=== PATIENT | male | born 1955 | race Caucasian/White ===

== ENCOUNTER 2018-06-02 14:05 | Inpatient (IN) | payer MEDICARE, MEDICAID ==
--- NOTE | 2018-06-02 14:20 | ED Physician Chart ---
ED Chief Complaint/HPI - Patient Information Date Seen:: 06/02/18 Time Seen:: 14:10 Chief Complaint:: Agitation History of Present Illness:: onset x 3 days of agitation and aggressive/hostile behavior; no report of trauma , H/As, SIs, S/T, neck pain, C/P, SOB, Abd. Pain, A/N/V/D/C, fever, chills, or urinary s/s Historian:: Patient, EMS Review:: Nurse's Note Reviewed, Old Chart Reviewed, EMS run form Reviewed ED Review of Systems - Review of Systems General/Constitutional: No fever, No chills, No weight loss, No weakness, No diaphoresis, No edema, No loss of appetite Skin: No skin lesions, No rash, No bruising Head: No headache, No light-headedness Eyes: No loss of vision, No pain, No diplopia ENT: No earache, No nasal drainage, No sore throat, No tinnitus Neck: No neck pain, No swelling, No thyromegaly, No stiffness, No mass noted Cardio Vascular: No chest pain, No palpitations, No PND, No orthopnea, No edema Pulmonary: No SOB, No cough, No sputum, No wheezing GI: No nausea, No vomiting, No diarrhea, No pain, No melena, No hematochezia, No constipation, No hematemesis G/U: No dysuria, No frequency, No hematuria, No nacturia Musculoskeletal: No bone or joint pain, No back pain, No muscle pain Endocrine: No polyuria, No polydipsia Psychiatric: Prior psych history, Depression, Anxiety, No suicidal ideation, No homicidal ideation, No auditory hallucination, No visual hallucination Hematopoietic: No bruising, No lymphadenopathy Allergic/Immuno: No urticaria, No angioedema Neurological: No syncope, No focal symptoms, No weakness, No paresthesia, No headache, No seizure, No dizziness, No confusion, No vertigo ED Past Medical History - Past Medical History Obtainable: Yes Past Medical History: HTN, Dyslipidemia Family History: HTN Social History: Non Smoker, No Alcohol, No Drug Use, Single, Care Facility Surgical History: None Psychiatricy History: Depression, Bipolar Medication: Reviewed Family Medical History - Family Member Mother History Unknown: Yes ED Physical Exam - Physical Examination General/Constitutional: Awake, Well-developed, well-nourished, Alert, No distress, GCS 15, Non-toxic appearing, Ambulatory Head: Atraumatic Eyes: Lids, conjuctiva normal, PERRL, EOMI Skin: Nl inspection, No rash, No skin lesions, No ecchymosis, Well hydrated, No lymphadenopathy ENMT: External ears, nose nl, TM canals nl, Nasal exam nl, Lips, teeth, gums nl , Oropharynx nl, Tonsils nl Neck: Nontender, Full ROM w/o pain, No JVD, No nuchal rigidity, No bruit, No mass, No stridor Respiratory: Nl effort/Exclusion, Clear to Auscultation, No Wheeze/Rhonchi/Rales Cardio Vascular: RRR, No murmur, gallop, rubs, NL S1 S2, Carotid/Femoral/Distal pulses equal bilaterally GI: No tenderness/rebounding/guarding, No organomegaly, No hernia, Normal BS's, Nondistended, No mass/bruits, No McBurney tenderness : No CVA tenderness Extremities: No tenderness or effusion, Full ROM, normal strength in all extremities, No edema, Normal digits & nails Neuro/Psych: Alert/oriented, DTR's symmetric, Normal sensory exam, Normal motor strength, Judgement/insight normal, Mood normal, Normal gait, No focal deficits Other Neuro/Psych comments:: + Psychomotor Agitation; no SIs; Mood/Affect: Labile Misc: Normal back, No paraspinal tenderness ED Labs/Radiology/EKG Results - Lab Results Comments:: Reviewed - EKG Interpretations EKG Time:: 14:29 Rate & Rhythm: 73; NSR Comments:: old ASMI; non-specific st-t changes ED Septic Shock - . Is Septic Shock (SBP<90, OR Lactate>4 mmol\L) present?: No ED Reassessment (Disposition) - Reassessment Reassessment Condition:: Improved - Diagnosis Diagnosis:: Agitation; Psychosis; Medical Clearance; Bipolar Disorder - Aftercare/Follow up Instructions Aftercare/Follow-Up Instructions:: Counseled pt regarding lab results/diagnosis & need follow up, Counseled pt & family regarding lab results/diagnosis & need follow up - Patient Disposition Discharge/Transfer:: Acute Care w/in this hosp Admitted to:: [facility] Condition at Disposition:: Stable, Improved
[2018-06-02 14:33] LABS: % BASOPHILS 0.6 % (0.0-2.0); % EOSINOPHILS 2.7 % (0.0-5.0); % LYMPHOCYTES 33.6 % (20.0-50.0); % MONOCYTES 9.2 % (2.0-10.0); % NEUTROPHILS 53.9 % (40.0-80.0); EOSINOPHILE ABSOLUTE 0.1 Th/cmm (0.1-0.4); HEMATOCRIT 42.9 % (41.0-60); HEMOGLOBIN 13.9 gm/dL (12-16); LYMPHOCYTE ABSOLUTE 1.8 Th/cmm (1.5-3.0); MEAN CELL VOLUME 84.5 fl (80-99); MEAN CORPUSCULAR HEMOGLOBIN 27.4 pg (26.0-30.0); MEAN CORPUSCULAR HGB CONC 32.4 pg (28.0-36.0); MEAN PLATELET VOLUME 8.9 fl; MONOCYTE ABSOLUTE 0.5 Th/cmm (0.3-1.0); NEUTROPHILE ABSOLUTE 2.9 Th/cmm (1.8-8.0); PLATELET COUNT 252 Th/cmm (150-400); RED BLOOD COUNT 5.07 Mil/cmm (4.30-5.70); RED CELL DISTRIBUTION WIDTH 16.1 % (11.5-20.0); WHITE BLOOD COUNT 5.3 Th/cmm (4.8-10.8)
[2018-06-02 14:51] LABS: ACETAMINOPHEN < 10.0 ug/mL (10.0-30.0); ALB/GLOB RATIO 1.4 (1.0-1.8); ALBUMIN 4.2 gm/dL (4.2-5.5); ALKALINE PHOSPHATASE 64 U/L (34-104); ANION GAP 9.1 (7.0-16.0); BILIRUBIN,TOTAL 0.3 mg/dL (0.3-1.0); BUN - UREA NITROGEN 21 mg/dL (7-25); CALCIUM SERUM 9.7 mg/dL (8.6-10.3); CARBON DIOXIDE 25.7 mEq/L (21.0-31.0); CHLORIDE 107 mEq/L (98-107); CHOLESTEROL 141 mg/dL (<200); CREATININE - SERUM 0.8 mg/dL (0.7-1.3); GFR AFRICAN-AMERICAN > 60.0 ml/min (>90); GFR NON AFRICAN-AMERICAN > 60.0 ml/min; GLUCOSE 150 mg/dL (70-105); HDL -HIGH DENSITY LIPOPROTEIN 31 mg/dL (23-92); POTASSIUM SERUM 3.8 mEq/L (3.5-5.1); SALICYLATES (ASPIRIN) < 25.0 mg/L (30.0-100.0); SGOT 9 U/L (13-39); SGPT/ALT 10 U/L (7-52); SODIUM SERUM 138 mEq/L (136-145); TOTAL PROTEIN,SERUM 7.3 gm/dL (6.0-8.3); TRIGLYCERIDES 172 mg/dL (<150)
[2018-06-02 18:29] VITALS: BP 156/86
[2018-06-02] MEDS ORDERED: Magnesium Hydroxide (MOM) 30 mL UDC PO PRN (18:29)
[2018-06-02 21:21] LABS: A1C % 5.3 % (4.0-6.0)
[2018-06-03] MEDS: Pantoprazole 40 mg EC Tab PO SCH (06:55)
[2018-06-03] MEDS ORDERED: FEBUXOSTAT 40 MG PO SCH (09:00)
[2018-06-03] MEDS ORDERED: Non-Formulary Item 1 EA (Apixaban [Eliquis] 5 MG) PO SCH (09:00)
[2018-06-04] MEDS: Pantoprazole 40 mg EC Tab PO SCH (06:35)
--- NOTE | 2018-06-04 07:48 | Psychiatric Evaluation ---
DATE OF SERVICE: PSYCHIATRIC INITIAL EVALUATION AND MENTAL STATUS EXAM PATIENT'S AGE: 62. SEX: Male. PHYSICIAN: Tarik Lao MD, MPH CHIEF COMPLAINT: Agitated behavior and refused to take medications. HISTORY OF PRESENT ILLNESS: The patient is a 62-year-old male who was transferred from [facility] to the hospital because of increased agitation and increased irritability. The patient also has been not cooperative with the staff during and not approving to help of his ADLs. The patient said that he has been living in [place] for exactly 37 days. He has not been able to sleep at night. The patient also seems to be depressed and slightly paranoid over there. He also said that he has a diagnosis of schizoaffective disorder, but also seems that his compliance with medications has been effective there. He denies currently any auditory or visual hallucinations, but admits to being paranoid and easily irritable and agitated. PAST PSYCHIATRIC HISTORY: The patient has history of multiple psychiatric hospitalizations for treatment of schizoaffective disorder. PAST MEDICAL HISTORY: The patient according to the admission report has multiple medical problems although the patient is denying. According to the chart, the patient has history of hypertension, dyslipidemia and questionable seizure disorder. FAMILY HISTORY: The patient has family history of hypertension. SOCIAL HISTORY: The patient lives in [place] for about 37 days. He is single, never and has no children. He smokes about 3 cigarettes per day. He denies any alcohol or any street drug use. He denies legal issues or abuse issues. 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 ALLERGIES: THE PATIENT SAID THAT HE IS ALLERGIC TO MEDICINE FOR TREATMENT OF CHOLESTEROL AND HYPERTENSION, BUT HE WAS NOT ABLE TO RECALL THE NAMES. MENTAL STATUS EXAMINATION: The patient appears his stated age. Anxious. Depressed mood. Cooperative currently and seems to be calm. Thought processes are mainly goal directed. The patient denies auditory or visual hallucinations, but seems to be suspicious and paranoid. The patient denies any thoughts of suicide or homicide. The patient is alert and oriented to time, place, person, and situation. Intact immediate, recent and remote memories. Fair insight. Judgment is questionable. Seems to be of average intelligence based on his verbal ability. ASSESSMENT: PRIMARY DIAGNOSES: Schizoaffective disorder, bipolar type, moderate, with psychotic features. MEDICAL DIAGNOSES: 1. Hypertension. 2. Hypercholesterolemia. TREATMENT PLAN: We will restart the patient on Seroquel and we will adjust the dose. The patient also said that he has been taking Seroquel in a dose of 400 mg at bedtime as well as Benadryl 100 mg at bedtime plus Ativan in order to help her sleep. Also, we will work on his mood and will continue to follow up closely. ESTIMATED LENGTH OF STAY: 5-7 days. THE PATIENT'S STRENGTHS AND WEAKNESSES: The patient's strength is not clear at this time. Weakness is his ineffective coping. AFTER DISCHARGE PLAN: The patient will return to [place] and outpatient treatment and followup will continue as an outpatient. CRITERIA FOR DISCHARGE: The patient will not be agitated and will stabilize psychotropic medications and will establish outpatient treatment plans. JOB# [id number]
--- NOTE | 2018-06-05 01:42 | Progress Notes ---
DATE: 06/04/2018 SUBJECTIVE: Chart reviewed and the patient interviewed. Also, discussed the patient's condition with the staff and reviewed records and labs. The patient is increasingly agitated. The patient also is refusing to be cooperative and gets sometimes agitated with the staff. During my interview, the patient was calm and cooperative with treatment and he is easier to redirect him. He also still wants to be left alone most of the times. Otherwise, the patient is compliant with taking his medications with no side effects of medications. ASSESSMENT: The patient is still agitated, but slightly less than yesterday. TREATMENT PLAN: Continue to monitor behavior and medications and continue to follow up closely. JOB# [id number]
[2018-06-05] MEDS: Pantoprazole 40 mg EC Tab PO SCH (07:01)
--- NOTE | 2018-06-05 09:11 | History & Physical ---
ADMIT DATE: 06/05/2018 CHIEF COMPLAINT: Agitation and refusing to take medications. HISTORY OF PRESENT ILLNESS: This is a 62-year-old male, who was admitted from nursing home facility to [facility] Emergency Room due to increasing agitation and refusal to take medication. From Emergency Room, the patient was admitted to Geropsych Unit for closer monitoring. REVIEW OF SYSTEMS: GENERAL: This is a 62-year-old male that appears as stated. Denies fever. Denies weakness. HEAD: Denies headache. Denies dizziness. EYES: Denies eye pain. Denies blurring of vision. NECK: Denies neck pain. Denies nuchal rigidity. CHEST: Denies chest pain. Denies palpitation. PULMONARY: Denies coughing. Denies shortness of breath. GASTROINTESTINAL: Denies abdominal pain. Denies constipation. Denies diarrhea. MUSCULOSKELETAL: Denies joint pain. Denies muscle pain. SOCIAL HISTORY: The patient lived in a nursing home facility prior to hospitalization. The patient is a current nicotine user. Denies alcohol. Denies illicit drug use. PAST SURGICAL HISTORY: Unremarkable. FAMILY HISTORY: Unremarkable. PAST MEDICAL HISTORY: Includes hypertension, glaucoma, hyperlipidemia, seizure, gastroesophageal reflux disease, atrial fibrillation. PHYSICAL EXAMINATION: VITAL SIGNS: Temperature 98, heart rate 78, respirations of 18, blood pressure 150/56, 97% on room air. GENERAL: This is a 62-year-old male, in no acute distress. HEAD: Atraumatic and normocephalic. EYES: Bilateral conjunctivae are clear. Bilateral pupils are equally round and reactive NECK: Supple. No JVD. CARDIOVASCULAR: S1 and S2 without murmur. PULMONARY: Clear to auscultation. GASTROINTESTINAL: Soft and nontender without guarding. Positive bowel sounds. MUSCULOSKELETAL: No clubbing. No cyanosis. The patient was noted to have cyst on the right medel with some draining of pus. ASSESSMENT: 1. Schizoaffective disorder. 2. Hypertension. 3. Glaucoma. 4. Hyperlipidemia. 5. Seizure. 6. Gastroesophageal reflux disease. 7. Infected cyst. PLAN: We will admit the patient to Geropsych Unit for followup with a psychiatrist to monitor the patient's condition and behavior. We will do medication reconciliation accordingly. We will put the patient on Keflex. Treatment plans were discussed with the patient's nurse. Treatment plans were discussed with Dr. Maynard. [facility]# [id number]
--- NOTE | 2018-06-05 21:20 | Progress Notes ---
DATE: 06/05/2018 Case was discussed with staff of the patient, reviewed records. Covering for Dr. Lao. PROGRESS ON THE UNIT: This is a 62-year-old male who is admitted on 06/02/2018. The patient was agitated, refusing medication, transferred from [facility] to the hospital because of increased agitation, increased irritability, has not been cooperative with staff, not approving to help with his ADLs. He has been unpredictable and impulsive, diagnosed with schizoaffective disorder. Denies any auditory or visual hallucination. He admits to being paranoid, easily agitated, and irritable. The patient continues to be irritable. He continues to be paranoid, but in general he seems to be more mellow. According to the staff, he is sleeping better, eating better. Compliant with the medication, no side effects, no sedation, no nausea, no extrapyramidal symptoms. He is on Abilify 10 mg at bedtime and Seroquel 200 mg daily and 400 mg at bedtime with no side effects. PLAN: We will continue to work with the patient in group therapy and milieu therapy, adjust medications as needed. JOB# [id number]
[2018-06-06] MEDS: Pantoprazole 40 mg EC Tab PO SCH (06:37)
--- NOTE | 2018-06-06 13:06 | General Progress Note ---
Subjective - Review of Systems Events since last encounter: irritable, confused refused medication Objective - Results Result Diagrams: 06/02/18 14:20 06/02/18 14:20 Recent Labs: Laboratory Last Values WBC 5.3 Th/cmm (4.8-10.8) 06/02/18 14:20 RBC 5.07 Mil/cmm (4.30-5.70) 06/02/18 14:20 Hgb 13.9 gm/dL (12-16) 06/02/18 14:20 Hct 42.9 % (41.0-60) 06/02/18 14:20 MCV 84.5 fl (80-99) 06/02/18 14:20 MCH 27.4 pg (26.0-30.0) 06/02/18 14:20 MCHC Differential 32.4 pg (28.0-36.0) 06/02/18 14:20 RDW 16.1 % (11.5-20.0) 06/02/18 14:20 Plt Count 252 Th/cmm (150-400) 06/02/18 14:20 MPV 8.9 fl 06/02/18 14:20 Neutrophils % 53.9 % (40.0-80.0) 06/02/18 14:20 Lymphocytes % 33.6 % (20.0-50.0) 06/02/18 14:20 Monocytes % 9.2 % (2.0-10.0) 06/02/18 14:20 Eosinophils % 2.7 % (0.0-5.0) 06/02/18 14:20 Basophils % 0.6 % (0.0-2.0) 06/02/18 14:20 Sodium 138 mEq/L (136-145) 06/02/18 14:20 Potassium 3.8 mEq/L (3.5-5.1) 06/02/18 14:20 Chloride 107 mEq/L (98-107) 06/02/18 14:20 Carbon Dioxide 25.7 mEq/L (21.0-31.0) 06/02/18 14:20 Anion Gap 9.1 (7.0-16.0) 06/02/18 14:20 BUN 21 mg/dL (7-25) 06/02/18 14:20 Creatinine 0.8 mg/dL (0.7-1.3) 06/02/18 14:20 Est GFR ( Amer) > 60.0 ml/min (>90) 06/02/18 14:20 Est GFR (Non-Af Amer) > 60.0 ml/min 06/02/18 14:20 BUN/Creatinine Ratio 26.3 06/02/18 14:20 Glucose 150 mg/dL (70-105) H 06/02/18 14:20 Hemoglobin A1c % 5.3 % (4.0-6.0) 06/02/18 14:20 Calcium 9.7 mg/dL (8.6-10.3) 06/02/18 14:20 Total Bilirubin 0.3 mg/dL (0.3-1.0) 06/02/18 14:20 AST 9 U/L (13-39) L 06/02/18 14:20 ALT 10 U/L (7-52) 06/02/18 14:20 Alkaline Phosphatase 64 U/L (34-104) 06/02/18 14:20 Troponin I < 0.01 ng/mL (0.01-0.05) L 06/02/18 14:20 Total Protein 7.3 gm/dL (6.0-8.3) 06/02/18 14:20 Albumin 4.2 gm/dL (4.2-5.5) 06/02/18 14:20 Globulin 3.1 gm/dL 06/02/18 14:20 Albumin/Globulin Ratio 1.4 (1.0-1.8) 06/02/18 14:20 Triglycerides 172 mg/dL (<150) H 06/02/18 14:20 Cholesterol 141 mg/dL (<200) 06/02/18 14:20 LDL Cholesterol Direct 83 mg/dL (75-193) 06/02/18 14:20 HDL Cholesterol 31 mg/dL (23-92) 06/02/18 14:20 TSH 0.26 uIU/ml (0.34-5.60) L 06/02/18 14:20 Salicylates < 25.0 mg/L (30.0-100.0) L 06/02/18 14:20 Acetaminophen < 10.0 ug/mL (10.0-30.0) L 06/02/18 14:20 Ethyl Alcohol < 10 mg/dL (0-10) 06/02/18 14:20 RPR NONREACTIVE (NONREACTIVE) 06/02/18 14:20 - Physical Exam Vitals and I&O: Vital Signs Temp 97.6 F 06/06/18 06:39 Pulse 63 06/06/18 10:01 Resp 19 06/06/18 06:39 BP 135/88 06/06/18 10:01 Pulse Ox 97 06/06/18 06:39 Intake & Output 06/05/18 06/06/18 06/06/18 18:59 06:59 18:59 Intake Total 1200 480 Balance 1200 480 Intake: Oral 1200 480 Other: # Voids 1 # Bowel Movements 1 Active Medications: Current Medications Amlodipine Besylate (Norvasc) 5 mg PO BID KATHLEEN Stop: 08/02/18 08:59 Last Admin: 06/06/18 10:01 Dose: Not Given Aripiprazole (Abilify) 10 mg PO HS KATHLEEN; Protocol Stop: 08/02/18 20:59 Last Admin: 06/05/18 20:53 Dose: Not Given Brimonidine Tartrate (Alphagan 0.2% Ophth Soln) 1 drop RIGHT EYE BID KATHLEEN Stop: 08/02/18 08:59 Last Admin: 06/06/18 09:59 Dose: Not Given Cephalexin Monohydrate (Keflex) 250 mg PO QID KATHLEEN Stop: 06/12/18 08:59 Last Admin: 06/06/18 10:08 Dose: Not Given Diphenhydramine HCl (Benadryl) 50 mg PO HS KATHLEEN Stop: 08/02/18 20:59 Last Admin: 06/05/18 20:54 Dose: 50 mg Docusate Sodium (Colace) 250 mg PO DAILY KATHLEEN Stop: 08/02/18 08:59 Last Admin: 06/06/18 09:59 Dose: 250 mg Gemfibrozil (Lopid) 600 mg PO QDAC KATHLEEN Stop: 08/02/18 07:29 Last Admin: 06/06/18 06:37 Dose: Not Given Hydralazine HCl (Apresoline) 50 mg PO TID KATHLEEN Stop: 08/01/18 20:59 Last Admin: 06/06/18 10:01 Dose: Not Given Latanoprost (Xalatan 0.005% Ophth Soln) 1 drop EACH EYE HS [facility] Stop: 08/02/18 20:59 Last Admin: 06/05/18 21:10 Dose: Not Given Levetiracetam (Keppra) 1,000 mg PO TID KATHLEEN Stop: 08/02/18 08:59 Last Admin: 06/06/18 10:00 Dose: Not Given Lorazepam (Ativan) 0.5 mg PO HS [facility]; Protocol Stop: 08/02/18 20:59 Last Admin: 06/05/18 21:02 Dose: 0.5 mg Magnesium Hydroxide (Milk Of Magnesia) 30 ml PO PRN PRN PRN Reason: Constipation Stop: 08/01/18 18:28 Metoprolol Tartrate (Lopressor) 50 mg PO BID [facility] Stop: 08/02/18 08:59 Last Admin: 06/06/18 10:00 Dose: Not Given Pantoprazole Sodium (Protonix) 40 mg PO QDAC KATHLEEN Stop: 08/02/18 07:29 Last Admin: 06/06/18 06:37 Dose: Not Given Quetiapine Fumarate (Seroquel) 200 mg PO DAILY [facility]; Protocol Stop: 08/02/18 08:59 Last Admin: 06/06/18 09:59 Dose: 200 mg Quetiapine Fumarate (Seroquel) 400 mg PO HS [facility]; Protocol Stop: 08/01/18 20:59 Last Admin: 06/05/18 21:02 Dose: 400 mg Rivaroxaban (Xarelto) 20 mg PO HS [facility] Stop: 08/03/18 20:59 Last Admin: 06/05/18 21:03 Dose: Not Given Nutritional Asmnt/Malnutr-PDOC - Dietary Evaluation Malnutrition Findings (Please click <Entered> for more info): Nutritional Asmnt/Malnutrition Start: 06/05/18 09: 15 Text: Status: Complete Freq: Protocol: Document 06/05/18 09:15 JUAN CARLOS (Rec: 06/05/18 09:34 JUAN CARLOS CASTORENA- [email or web address]) Nutritional Asmnt/Malnutrition Patient General Information Nutritional Screening Moderate Risk Diagnosis Psychosis Pertinent Medical Hx/Surgical Hx hypertension, glaucoma, hyperlipidemia, seizure, GERD, atrial fibrillation Subjective Information Patient was admissted from SNF . No nutrition problems identified at this time. Current Diet Order/ Nutrition Support Mechanical soft chopped Odalis Patient / S.O Not Indicated Pertinent Medications colace, MOM, protonix Pertinent Labs WNL Nutritional Hx/Data Height 1.78 m Height (Calculated Centimeters) 177.8 Current Weight (lbs) 81.647 kg Weight (Calculated Kilograms) 81.6 Weight (Calculated Grams) 02896.6 [place] Body Weight 166 % [place] Body Weight 108 Body Mass Index (BMI) 25.8 Recent Weight Change No Weight Status Overweight GI Symptoms GI Symptoms None Last BM 06/03 x 1 Difficult in: None Food Allergies No Cultural/Ethnic/Islam Belief None indicated Usual diet at home unknown Skin Integrity/Comment: Dayron 21, dryness Current %PO Good (75-100%) Estimated Nutritional Goals BEE in Kcals: Using Current wt Calories/Kcals/Kg 25-30 kcal/kg using CBW 81.8kg Kcals Calculated 4545-3838 kcal/day Protein: Using Current wt Protein g/k.8-1 gm/kg using CBW Protein Calculated 65-80 gm/day Fluid: ml 5056-0265 ml/day (1 ml/kcal) Nutritional Problem 1. Problem Problem No nutrition diagnosis at this time Intervention/Recommendation Comments 1. Continue mechanical soft, chopped, ODALIS diet as tolerated by patient as it is adequate to meet nutrient needs. 2. F/U LR 06/12 Expected Outcomes/Goals Expected Outcomes/Goals Oral intake <75% Of meals, weight stable, nutrition related labs WNL
--- NOTE | 2018-06-06 17:50 | Progress Notes ---
DATE: 06/06/2018 Case was discussed with staff of the patient, reviewed records. The patient continues to look disheveled, disorganized, internally preoccupied. Continues to have poor insight. Unable to make safe plan for self-care, unpredictable, impulsive, needing redirection. Continues to need help with his ADLs. No side effects with the medication. No sedation. No nausea. No extrapyramidal symptoms. We will continue the patient in group therapy and milieu therapy, and adjust the medications as needed. JOB# [id number]
[2018-06-07] MEDS: Pantoprazole 40 mg EC Tab PO SCH (06:44)
--- NOTE | 2018-06-07 10:46 | Progress Notes ---
DATE: SUBJECTIVE: Chart reviewed and the patient interviewed. Also, discussed the patient's condition with the staff and reviewed records and labs. The patient is still isolative and withdrawn. The patient also is complaining of insomnia and inability to sleep at night. The patient also is still interacting minimally with others. Also, still paranoid and complaining of his roommate and he is accusing me that is the reason that he is not able to sleep in spite denying that. Otherwise, the patient is compliant with taking his medications with no side effect of medications. The patient's only side effect that he is complaining about is that he is feeling shaky and that "there are two vitals causing me like I am getting a heart attack" referring to Lisa that he is refusing to take. The patient at the same time denies that he has any seizures in the past. JOB# [id number]
--- NOTE | 2018-06-07 10:56 | Psychiatric Evaluation ---
DATE OF SERVICE: PSYCHIATRIC INITIAL EVALUATION AND MENTAL STATUS EXAM AGE: 62. SEX: Male. PHYSICIAN: Dr. Lao. CHIEF COMPLAINT: Agitation and refusing medications. HISTORY OF PRESENT ILLNESS: The patient is a 62-year-old male who was transferred from [facility] because of increased agitation and refusing to take his medications. The patient has been refusing to take his medications including Seroquel, Abilify, and Keppra. The patient did not give any special reason for refusing medications. The patient also has been anxious and has been in a depressed mood. He also denied any specific reason for his refusal of medications. PAST PSYCHIATRIC HISTORY: The patient has history of what seems to be schizoaffective disorder. PAST MEDICAL HISTORY: The patient has history of hypertension, hyperlipidemia, gastroesophageal reflux disease, atrial fib and seizure disorder. SOCIAL HISTORY: The patient lives in [facility]. He denies any alcohol or street drug use. ALLERGIES: No known allergies. MENTAL STATUS EXAMINATION: The patient appears his stated age. Cooperative. Anxious. Mood not depressed nor elated. The patient denies any hallucinations or delusions, but seems to be preoccupied and responding. He denies any thoughts of suicide or homicide. The patient is alert and oriented to time, place, person and situation. Intact immediate, recent and remote memories. Fair insight, but poor judgment. He seems to be of average intelligence based on his verbal ability. ASSESSMENT: PRIMARY DIAGNOSIS: Schizoaffective disorder, moderate to severe, mixed type, with psychotic features. MEDICAL DIAGNOSES: Hypertension. History of seizure disorder. TREATMENT PLAN: We will monitor the patient's behavior and condition closely. We will start individual as well as milieu psychotherapy. Also, we will adjust psychotropic medications. ESTIMATED LENGTH OF STAY: 5-7 days. THE PATIENT'S STRENGTHS AND WEAKNESSES: The patient's general fund of knowledge is fair. Weaknesses is his ineffective coping and his poor judgment. AFTER DISCHARGE PLAN: Outpatient treatment and followup will continue as an outpatient. CRITERIA FOR DISCHARGE: The patient will not be as agitated or aggressive and will stabilize psychotropic medications and will establish outpatient treatment plans. [facility]# [id number]
--- NOTE | 2018-06-07 15:38 | General Progress Note ---
Subjective - Review of Systems Events since last encounter: patient awake in no acute distress Objective - Results Result Diagrams: 06/02/18 14:20 06/02/18 14:20 Recent Labs: Laboratory Last Values WBC 5.3 Th/cmm (4.8-10.8) 06/02/18 14:20 RBC 5.07 Mil/cmm (4.30-5.70) 06/02/18 14:20 Hgb 13.9 gm/dL (12-16) 06/02/18 14:20 Hct 42.9 % (41.0-60) 06/02/18 14:20 MCV 84.5 fl (80-99) 06/02/18 14:20 MCH 27.4 pg (26.0-30.0) 06/02/18 14:20 MCHC Differential 32.4 pg (28.0-36.0) 06/02/18 14:20 RDW 16.1 % (11.5-20.0) 06/02/18 14:20 Plt Count 252 Th/cmm (150-400) 06/02/18 14:20 MPV 8.9 fl 06/02/18 14:20 Neutrophils % 53.9 % (40.0-80.0) 06/02/18 14:20 Lymphocytes % 33.6 % (20.0-50.0) 06/02/18 14:20 Monocytes % 9.2 % (2.0-10.0) 06/02/18 14:20 Eosinophils % 2.7 % (0.0-5.0) 06/02/18 14:20 Basophils % 0.6 % (0.0-2.0) 06/02/18 14:20 Sodium 138 mEq/L (136-145) 06/02/18 14:20 Potassium 3.8 mEq/L (3.5-5.1) 06/02/18 14:20 Chloride 107 mEq/L (98-107) 06/02/18 14:20 Carbon Dioxide 25.7 mEq/L (21.0-31.0) 06/02/18 14:20 Anion Gap 9.1 (7.0-16.0) 06/02/18 14:20 BUN 21 mg/dL (7-25) 06/02/18 14:20 Creatinine 0.8 mg/dL (0.7-1.3) 06/02/18 14:20 Est GFR ( Amer) > 60.0 ml/min (>90) 06/02/18 14:20 Est GFR (Non-Af Amer) > 60.0 ml/min 06/02/18 14:20 BUN/Creatinine Ratio 26.3 06/02/18 14:20 Glucose 150 mg/dL (70-105) H 06/02/18 14:20 Hemoglobin A1c % 5.3 % (4.0-6.0) 06/02/18 14:20 Calcium 9.7 mg/dL (8.6-10.3) 06/02/18 14:20 Total Bilirubin 0.3 mg/dL (0.3-1.0) 06/02/18 14:20 AST 9 U/L (13-39) L 06/02/18 14:20 ALT 10 U/L (7-52) 06/02/18 14:20 Alkaline Phosphatase 64 U/L (34-104) 06/02/18 14:20 Troponin I < 0.01 ng/mL (0.01-0.05) L 06/02/18 14:20 Total Protein 7.3 gm/dL (6.0-8.3) 06/02/18 14:20 Albumin 4.2 gm/dL (4.2-5.5) 06/02/18 14:20 Globulin 3.1 gm/dL 06/02/18 14:20 Albumin/Globulin Ratio 1.4 (1.0-1.8) 06/02/18 14:20 Triglycerides 172 mg/dL (<150) H 06/02/18 14:20 Cholesterol 141 mg/dL (<200) 06/02/18 14:20 LDL Cholesterol Direct 83 mg/dL (75-193) 06/02/18 14:20 HDL Cholesterol 31 mg/dL (23-92) 06/02/18 14:20 TSH 0.26 uIU/ml (0.34-5.60) L 06/02/18 14:20 Salicylates < 25.0 mg/L (30.0-100.0) L 06/02/18 14:20 Acetaminophen < 10.0 ug/mL (10.0-30.0) L 06/02/18 14:20 Ethyl Alcohol < 10 mg/dL (0-10) 06/02/18 14:20 RPR NONREACTIVE (NONREACTIVE) 06/02/18 14:20 - Physical Exam Vitals and I&O: Vital Signs Temp 98.8 F 06/07/18 15:02 Pulse 77 06/07/18 15:02 Resp 20 06/07/18 15:02 BP 151/80 06/07/18 15:02 Pulse Ox 96 06/07/18 15:02 Intake & Output 06/06/18 06/07/18 06/07/18 18:59 06:59 18:59 Intake Total 300 Balance 300 Intake: Oral 300 Other: # Voids 2 # Bowel Movements 0 Active Medications: Current Medications Amlodipine Besylate (Norvasc) 5 mg PO BID KATHLEEN Stop: 08/02/18 08:59 Last Admin: 06/06/18 17:21 Dose: Not Given Aripiprazole (Abilify) 10 mg PO HS KATHLEEN; Protocol Stop: 08/02/18 20:59 Last Admin: 06/06/18 21:28 Dose: 10 mg Brimonidine Tartrate (Alphagan 0.2% Ophth Soln) 1 drop RIGHT EYE BID KATHLEEN Stop: 08/02/18 08:59 Last Admin: 06/06/18 17:22 Dose: Not Given Cephalexin Monohydrate (Keflex) 250 mg PO QID KATHLEEN Stop: 06/12/18 08:59 Last Admin: 06/07/18 01:04 Dose: Not Given Diphenhydramine HCl (Benadryl) 50 mg PO HS KATHLEEN Stop: 08/02/18 20:59 Last Admin: 06/06/18 21:26 Dose: 50 mg Docusate Sodium (Colace) 250 mg PO DAILY KATHLEEN Stop: 08/02/18 08:59 Last Admin: 06/06/18 09:59 Dose: 250 mg Gemfibrozil (Lopid) 600 mg PO QDAC KATHLEEN Stop: 08/02/18 07:29 Last Admin: 06/07/18 06:44 Dose: Not Given Hydralazine HCl (Apresoline) 50 mg PO TID KATHLEEN Stop: 08/01/18 20:59 Last Admin: 06/07/18 01:05 Dose: Not Given Latanoprost (Xalatan 0.005% Ophth Soln) 1 drop EACH EYE HS [facility] Stop: 08/02/18 20:59 Last Admin: 06/07/18 01:05 Dose: Not Given Levetiracetam (Keppra) 1,000 mg PO TID KATHLEEN Stop: 08/02/18 08:59 Last Admin: 06/07/18 01:05 Dose: Not Given Lorazepam (Ativan) 0.5 mg PO HS [facility]; Protocol Stop: 08/02/18 20:59 Last Admin: 06/06/18 21:26 Dose: 0.5 mg Magnesium Hydroxide (Milk Of Magnesia) 30 ml PO PRN PRN PRN Reason: Constipation Stop: 08/01/18 18:28 Metoprolol Tartrate (Lopressor) 50 mg PO BID [facility] Stop: 08/02/18 08:59 Last Admin: 06/06/18 17:22 Dose: Not Given Pantoprazole Sodium (Protonix) 40 mg PO QDAC KATHLEEN Stop: 08/02/18 07:29 Last Admin: 06/07/18 06:44 Dose: Not Given Quetiapine Fumarate (Seroquel) 200 mg PO DAILY [facility]; Protocol Stop: 08/02/18 08:59 Last Admin: 06/06/18 09:59 Dose: 200 mg Quetiapine Fumarate (Seroquel) 400 mg PO HS [facility]; Protocol Stop: 08/01/18 20:59 Last Admin: 06/06/18 21:26 Dose: 400 mg Rivaroxaban (Xarelto) 20 mg PO HS [facility] Stop: 08/03/18 20:59 Last Admin: 06/07/18 01:05 Dose: Not Given Nutritional Asmnt/Malnutr-PDOC - Dietary Evaluation Malnutrition Findings (Please click <Entered> for more info): Nutritional Asmnt/Malnutrition Start: 06/05/18 09: 15 Text: Status: Complete Freq: Protocol: Document 06/05/18 09:15 JUAN CARLOS (Rec: 06/05/18 09:34 JUAN CARLOS CASTORENA- [id number]) Nutritional Asmnt/Malnutrition Patient General Information Nutritional Screening Moderate Risk Diagnosis Psychosis Pertinent Medical Hx/Surgical Hx hypertension, glaucoma, hyperlipidemia, seizure, GERD, atrial fibrillation Subjective Information Patient was admissted from SNF . No nutrition problems identified at this time. Current Diet Order/ Nutrition Support Mechanical soft chopped Odalis Patient / S.O Not Indicated Pertinent Medications colace, MOM, protonix Pertinent Labs WNL Nutritional Hx/Data Height 1.78 m Height (Calculated Centimeters) 177.8 Current Weight (lbs) 81.647 kg Weight (Calculated Kilograms) 81.6 Weight (Calculated Grams) 63171.6 [place] Body Weight 166 % [place] Body Weight 108 Body Mass Index (BMI) 25.8 Recent Weight Change No Weight Status Overweight GI Symptoms GI Symptoms None Last BM 06/03 x 1 Difficult in: None Food Allergies No Cultural/Ethnic/Mandaen Belief None indicated Usual diet at home unknown Skin Integrity/Comment: Dayron 21, dryness Current %PO Good (75-100%) Estimated Nutritional Goals BEE in Kcals: Using Current wt Calories/Kcals/Kg 25-30 kcal/kg using CBW 81.8kg Kcals Calculated 5762-1265 kcal/day Protein: Using Current wt Protein g/k.8-1 gm/kg using CBW Protein Calculated 65-80 gm/day Fluid: ml 5158-8530 ml/day (1 ml/kcal) Nutritional Problem 1. Problem Problem No nutrition diagnosis at this time Intervention/Recommendation Comments 1. Continue mechanical soft, chopped, ODALIS diet as tolerated by patient as it is adequate to meet nutrient needs. 2. F/U LR 06/12 Expected Outcomes/Goals Expected Outcomes/Goals Oral intake <75% Of meals, weight stable, nutrition related labs WNL
[2018-06-08] MEDS: Pantoprazole 40 mg EC Tab PO SCH (06:36)
--- NOTE | 2018-06-08 21:45 | Progress Notes ---
DATE: 06/08/2018 PSYCHIATRIC PROGRESS NOTE SUBJECTIVE: Chart reviewed and the patient interviewed. Also discussed the patient's condition with the staff and reviewed records and labs. The patient is complaining of insomnia. The patient also is still in a depressed mood. The patient also is alert and oriented, but he seems to be slightly paranoid and is still impulsive and has unpredictable behavior. The patient also is compliant with taking his medications, but he is complaining of dizzy and is still complaining of feeling "sick." Otherwise, the patient denies any other side effects of medications. ASSESSMENT: The patient is still anxious, psychotic, and is complaining of insomnia. TREATMENT PLAN: Continue to monitor his behavior and his condition closely. Also, continue to work on his anxiety and his irritability. We will add trazodone in a dose of 50 mg at bedtime and we will continue to follow up closely. JOB# [id number]
[2018-06-09] MEDS: Pantoprazole 40 mg EC Tab PO SCH (06:41)
[2018-06-09] MEDS ORDERED: Probiotic Screen MC PRN (11:40)
[2018-06-09] MEDS ORDERED: Lactobacillus Rhamnosus GG 15 Billion CFU CAP.SPRINK PO SCH (14:00)
--- NOTE | 2018-06-10 08:19 | Discharge Summary ---
DATE OF DISCHARGE: 06/09/2018 AGE: 62. SEX: Male. PHYSICIAN: Tarik Lao MD, MPH FINAL DIAGNOSES: PRIMARY DIAGNOSES: Schizoaffective disorder, bipolar type, moderate, with psychotic features. MEDICAL DIAGNOSES: Hypertension. Hypercholesterolemia. REASON FOR HOSPITALIZATION: The patient was admitted to the hospital because of increased agitation and behavioral problems as well as refusal to take his medications in [facility]. HOSPITAL COURSE: The patient continued to be anxious and agitated. The patient also was having difficulty with his sleep at night. Also was suspicious and paranoid. The patient also was selective with his medications, but he was compliant with taking his Seroquel and refused Abilify. He also continued to take Seroquel in a dose of 200 mg in the morning and ____ mg at bedtime with no side effect. Because of his severe insomnia, trazodone 50 mg at bedtime was added and the patient slept better on the trazodone. The patient was calm and he was not suicidal or homicidal and the patient was discharged from the hospital. Physical exam of the patient is as mentioned under axis III final diagnosis. Blood workup was monitored closely by Dr. Rey. AFTER DISCHARGE PLANS: The patient discharged from the hospital and went back to [facility] with plans for outpatient treatment and followup there. EXPECTED OUTCOME AFTER DISCHARGE: Fair if the patient continues to take psychotropic medications and follow up with discharge plan. JOB# [id number]
== END 2018-06-09 13:05 | DRG 885 ==
LOC: ER 14:05 → GERO 16:10
PROVIDERS: ADMIT Psychiatry & Neurology Psychiatry; ATTEND Psychiatry & Neurology Psychiatry
DX: F25.0 Schizoaffective disorder, bipolar type (principal); I10 Essential (primary) hypertension; E78.5 Hyperlipidemia, unspecified; K21.9 Gastro-esophageal reflux disease without esophagitis; H40.9 Unspecified glaucoma; F29 Unspecified psychosis not due to a substance or known physiological condition; E78.00 Pure hypercholesterolemia, unspecified; I48.91 Unspecified atrial fibrillation; G47.00 Insomnia, unspecified; G40.909 Epilepsy, unspecified, not intractable, without status epilepticus; F41.9 Anxiety disorder, unspecified; Z82.49 Family history of ischemic heart disease and other diseases of the circulatory system
CPT/HCPCS: 36415-UA; 80053-TC; 80061-TC; 80320-TC; 80329-TC; 83036-90; 84443-TC; 84484-TC; 85025-TC; 86592-TC; 93005; Z7610